=== PATIENT | female | born 1985 | race Two or more races ===

== ENCOUNTER 2016-07-10 20:31 | Emergency (ER) | payer BC ==
[~2016-07-10 20:31] MED LIST: FAMOTIDINE IV; HYDROCODON-ACE1 EA17 PO; IRON1 TA1 PO; LIPITOR10 M1 PO; NORCO 5/325 TAB1 TAB PO; PEPCID20 MG PO; PRENATAL1 EACH PO; PRINIVIL10 M1 PO; SEASONIQUE 0.11 EACH PO; TRANDATE100 MG PO; TUMS300 MG PO; TYLENOL325 MG PO; ZOFRAN4 M2 PO
== END 2016-07-10 22:02 ==
LOC: EDMED 20:31
DX: S16.1XXA Strain of muscle, fascia and tendon at neck level, initial encounter (principal); I25.10 Atherosclerotic heart disease of native coronary artery without angina pectoris; I10 Essential (primary) hypertension; Z79.899 Other long term (current) drug therapy; Z98.890 Other specified postprocedural states; V49.40XA Driver injured in collision with unspecified motor vehicles in traffic accident, initial encounter; Y92.410 Unspecified street and highway as the place of occurrence of the external cause